=== PATIENT | female | born 1980 | race Caucasian/White ===

== ENCOUNTER → 2018-01-03 | Outpatient (REF) | payer OTHER | LOC: M SFHCLERA 12:01 | DX: J02.9 Acute pharyngitis, unspecified (principal) ==

== ENCOUNTER → 2020-06-14 | Outpatient (CLI) | payer OTHER ==
[2020-06-14 17:53] LABS: BASO # 0.1 10^3/uL (0.0-0.2); BASO % 0.9 % (0.0-1.0); EOS # 0.1 10^3/uL (0.0-0.5); EOS % 0.9 % (0.0-3.0); HEMATOCRIT 38.2 % (36.0-47.0); HEMOGLOBIN 12.3 g/dl (12.0-15.5); LYMPH # 2.7 10^3/uL (1.5-5.0); LYMPH % 39.5 % (24.0-44.0); MEAN CORPUSCULAR HEMOGLOBIN 29.2 pg (27.0-33.0); MEAN CORPUSCULAR HGB CONC 32.2 g/dl (32.0-36.5); MEAN CORPUSCULAR VOLUME 90.7 fl (80.0-96.0); MONO # 0.5 10^3/uL (0.0-0.8); MONO % 6.9 % (2.0-8.0); NEUTROPHILS # 3.6 10^3/uL (1.5-8.5); NEUTROPHILS % 51.7 % (36.0-66.0); PLATELET COUNT, AUTOMATED 296 10^3/uL (150-450); RED BLOOD COUNT 4.21 10^6/uL (4.00-5.40); WHITE BLOOD COUNT 6.9 10^3/uL (4.0-10.0)
[2020-06-14 19:16] LABS: ERYTHROCYTE SEDIMENTATION RATE 11 mm/hr (0-20)
== END ==
LOC: M LAB 16:24
PROVIDERS: ATTEND Orthopaedic Surgery
DX: M25.562 Pain in left knee (principal)

== ENCOUNTER → 2020-10-01 | Outpatient (CLI) | payer OTHER ==
--- NOTE | 2020-10-01 20:57 | REPVR ---
PROCEDURE INFORMATION: Exam: MR Lumbar Spine Without Contrast Exam date and time: 10/01/2020 7:09 PM Age: 40 years old Clinical indication: Low back pain TECHNIQUE: Imaging protocol: Multiplanar magnetic resonance images of the lumbar spine without intravenous contrast. COMPARISON: No relevant prior studies available. FINDINGS: Vertebrae: The convention of 5 lumbar type vertebral bodies is used for this study. There is no acute fracture or subluxation in the lumbar spine. The bone marrow signal is normal. There is no evidence for discovertebral osteomyelitis. Spinal epidural space: No abnormal epidural fluid collection. Spinal cord: The conus medullaris is normal and terminates at the L2 level. T12-L1: The disc height is preserved. No disc herniation, spinal canal stenosis, lateral recess stenosis, or neural foraminal stenosis is noted. The facet joints are unremarkable. L1-L2: The disc height is preserved. No disc herniation, spinal canal stenosis, lateral recess stenosis, or neural foraminal stenosis is noted. The facet joints are unremarkable. L2-L3: The disc height is preserved. No disc herniation, spinal canal stenosis, lateral recess stenosis, or neural foraminal stenosis is noted. The facet joints are unremarkable. L3-L4: The disc height is preserved. No disc herniation, spinal canal stenosis, lateral recess stenosis, or neural foraminal stenosis is noted. The facet joints are unremarkable. L4-L5: The disc height is preserved. No disc herniation, spinal canal stenosis, lateral recess stenosis, or neural foraminal stenosis is noted. The facet joints are unremarkable. L5-S1: There is mild loss of disc height dorsally, disc desiccation, a mild posterior bulge, fissuring the right posterolateral portion of the annulus fibrosus, conjoined right L5-S1 nerve root, and a hypoplastic right facet joint. 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 Soft tissues: Unremarkable. No ligamentous sprain or muscular strain. No paraspinal soft tissue fluid collection. IMPRESSION: 1. No acute fracture, subluxation, ligamentous sprain or muscular strain lumbar spine. 2. L5-S1: Mild loss of disc height dorsally, disc desiccation, a mild posterior bulge, fissuring the right posterolateral portion of the annulus fibrosus, conjoined right L5-S1 nerve root, and a hypoplastic right facet joint. Electronically signed by: Mark Wilson On 10/01/2020 20:57:37 PM
== END ==
LOC: M RAD 18:15
PROVIDERS: ATTEND Orthopaedic Surgery
DX: M54.5 Low back pain (principal)

== ENCOUNTER → 2022-10-23 | Outpatient (CLI) | payer OTHER | LOC: M PLAIMG 07:51 | PROVIDERS: ATTEND Physician Assistant | DX: M50.321 Other cervical disc degeneration at C4-C5 level (principal) ==